=== PATIENT | male | born 1990 | race Asian ===

== ENCOUNTER 2019-07-03 18:40 | Emergency (ER) | payer MEDICAID ==
[~2019-07-03] VITALS: Ht 177.8 cm; Wt 63.5 kg
[2019-07-03 18:40] VITALS: BP_SYST 128
[2019-07-04] MEDS ORDERED: IBUPROFEN 600 MG TABLET PO ONE (01:45)
[2019-07-04 02:15] VITALS: BP_SYST 110
== END 2019-07-04 01:52 | disposition home or self-care (01) ==
LOC: SED 18:40
DX: K02.9 Dental caries, unspecified (principal)
CPT/HCPCS: 99283